=== PATIENT | female | born 1950 | race Caucasian/White ===

== ENCOUNTER 2017-09-07 12:29 | Emergency (ER) | payer OTHER ==
[2017-09-07 13:15] LABS: #Eosinphils 0.3 thou/uL (0.0-0.7); #Lymphocytes 1.9 thou/uL (1.20-3.40); #Monocytes 1.1 thou/uL (0.11-0.59); #Neutrophils 5.3 thou/uL (1.40-6.50); %Basophils 0.4 % (0.0-1.0); %Eosinophils 3.3 % (0.0-10.0); %Lymphocytes 21.7 % (21.0-51.0); %Monocytes 12.5 % (0.0-10.0); %Neutrophils 62.1 % (42.0-75.0); Hemoglobin 12.3 g/dL (12.0-16.0); Mean Corpuscular HGB CONC 33.2 g/dL (32.0-36.0); Mean Corpuscular Hemoglobin 30.3 pg (27.0-31.0); Mean Corpuscular Volume 91.2 fl (81.0-99.0); Mean Platelet Volume 7.8 fL (7.4-10.4); Platelet Count 337 thou/uL (130-400); RBC Distribution Width 11.9 % (11.5-14.5); Red Blood Cell (RBC) Count 4.06 mill/uL (4.20-5.40); White Blood Cell (WBC) Count 8.6 thou/uL (4.8-10.8)
--- NOTE | 2017-09-07 13:39 | RAD ---
FRONTAL VIEW CHEST: INDICATIONS: Emergency exam. History of fever. Weakness. Dizziness. Unsteady gait. COMPARISON: 07/13/2016 FINDINGS: There is added density at the right lower lung zone. This is new from the prior exam. There is no e vidence of consolidation of the left lung. The cardiomediastinal silhouette is stable. IMPRESSION: Newly developed patchy density of the inferior right chest. This indicates pneumonia. Recommend foll owup to confirm resolution. CODE T POS: [facility]
[2017-09-07 13:41] LABS: ALT (SGPT) 67 U/L (8-55); AST (SGOT) 54 U/L (5-34); Albumin 3.8 g/dL (3.4-4.8); Alkaline Phosphatase 201 U/L (40-150); Anion Gap 11 mmol/L (10-20); BUN (Urea Nitrogen) 15 mg/dL (9.8-20.1); Bilirubin, Total 0.3 mg/dL (0.2-1.2); Calc. Creatinine Clearance 0 mL/min (70-130); Calcium 9.3 mg/dL (7.8-10.44); Carbon Dioxide 27 mmol/L (23-31); Chloride 104 mmol/L (98-107); Estimated GFR-MDRD 64; Globulin 3.7 g/dL (2.4-3.5); Glucose 96 mg/dL (80-115); Potassium 3.5 mmol/L (3.5-5.1); Protein, Total 7.5 g/dL (6.0-8.3); Sodium 138 mmol/L (136-145)
[2017-09-07 13:44] LABS: Troponin I Less than 0.010 ng/mL (< 0.028)
[2017-09-07 14:02] LABS: Bilirubin Negative (Negative); Blood, Urine Negative (Negative); Clarity CLEAR (Clear); Glucose, Urine (Dipstick) Negative (Negative); Leukocyte Negative (Negative); Nitrite Negative (Negative); Protein, Urine (Dipstick) Negative (Neg-Trace); Specific Gravity, Urine 1.015 (1.002-1.036); Urobilinogen 0.2 mg/dL (0.2-1.0); pH, Urine 5.5 (5.0-9.0)
--- NOTE | 2017-09-07 14:57 | CT ---
CT BRAIN: Date: 09/07/17 HISTORY: Intermittent alteration, fever. TECHNIQUE: Noncontrast enhanced CT images of brain obtained. COMPARISON: Previous exam from 12/05/13 and 08/17/13. FINDINGS: CT images of the brain demonstrate continued presence of areas of hyperdensity in the medial aspect o f the right parietal lobe. These areas of hyperdensity are stable over three CT scans. As they have n ot changed, I suspect that they may represent more chronic calcifications from a vascular malformatio n. No significant interval change is seen to suggest that this is hemorrhage, although it is theoreti frank possible that tiny areas of subarachnoid hemorrhage are present in the identical location and t he identical amount over three CTs over a four year period. I suspect that this is, however, very unl ikely. No other intracranial abnormality seen. No evidence of acute strokes seen. IMPRESSION: Likely area of calcification in the right parietal subarachnoid space. This may be due to vascular ma lformation, including possible Sturge-Tamez type vascular pathology. POS: [facility]
== END 2017-09-07 15:35 | disposition home or self-care (01) ==
LOC: ERS 12:29
DX: J18.9 Pneumonia, unspecified organism (principal); I48.91 Unspecified atrial fibrillation; I50.9 Heart failure, unspecified; G43.909 Migraine, unspecified, not intractable, without status migrainosus; F41.9 Anxiety disorder, unspecified; F43.10 Post-traumatic stress disorder, unspecified; Z87.891 Personal history of nicotine dependence; Z79.899 Other long term (current) drug therapy; Z85.850 Personal history of malignant neoplasm of thyroid; Z85.43 Personal history of malignant neoplasm of ovary
CPT/HCPCS: 70450; 71045; 80053; 81003; 82553; 84484; 85025; 93005

== ENCOUNTER 2018-03-07 15:24 | Emergency (ER) | payer OTHER ==
--- NOTE | 2018-03-07 16:00 | RAD ---
RADIOGRAPH CHEST 2 VIEWS: HISTORY: 67-year-old female with cough and wheezing. FINDINGS: There is no air space density, pulmonary edema, pleural effusion, pneumothorax, or cardiomegaly. Ther e is a dual lead left subclavian pacemaker. IMPRESSION: 1. No acute cardiopulmonary findings. 2. Pacemaker. jn [] POS: C
[2018-03-07] MEDS ORDERED: Levalbuterol HCl 1.25 MG/0.5 ML NEB NEB SCH ×2 (16:30→17:30)
[2018-03-07 16:42] LABS: #Basophils 0.1 thou/uL (0.0-0.2); #Eosinphils 0.2 thou/uL (0.0-0.7); #Lymphocytes 2.8 thou/uL (1.20-3.40); #Monocytes 0.9 thou/uL (0.11-0.59); #Neutrophils 5.2 thou/uL (1.40-6.50); %Basophils 0.8 % (0.0-1.0); %Eosinophils 2.1 % (0.0-10.0); %Lymphocytes 30.6 % (21.0-51.0); %Monocytes 9.3 % (0.0-10.0); %Neutrophils 57.2 % (42.0-75.0); Hemoglobin 11.6 g/dL (12.0-16.0); Mean Corpuscular HGB CONC 31.7 g/dL (32.0-36.0); Mean Corpuscular Hemoglobin 26.7 pg (27.0-31.0); Mean Corpuscular Volume 84.2 fL (78.0-98.0); Mean Platelet Volume 7.8 fL (7.4-10.4); Platelet Count 453 thou/uL (130-400); RBC Distribution Width 16.2 % (11.5-14.5); Red Blood Cell (RBC) Count 4.33 mill/uL (4.20-5.40); White Blood Cell (WBC) Count 9.1 thou/uL (4.8-10.8)
[2018-03-07] MEDS ORDERED: predniSONE 20 MG TAB ONE (16:50)
[2018-03-07 17:08] LABS: ALT (SGPT) 25 U/L (8-55); AST (SGOT) 25 U/L (5-34); Alkaline Phosphatase 191 U/L (40-150); Anion Gap 11 mmol/L (10-20); BUN (Urea Nitrogen) 14 mg/dL (9.8-20.1); Bilirubin, Total 0.3 mg/dL (0.2-1.2); CK (CPK) 80 U/L (29-168); Calc. Creatinine Clearance 0 mL/min (70-130); Calcium 9.4 mg/dL (7.8-10.44); Carbon Dioxide 27 mmol/L (23-31); Chloride 105 mmol/L (98-107); Estimated GFR-MDRD 68; Globulin 3.4 g/dL (2.4-3.5); Glucose 103 mg/dL (80-115); Potassium 3.9 mmol/L (3.5-5.1); Protein, Total 7.4 g/dL (6.0-8.3); Sodium 139 mmol/L (136-145)
== END 2018-03-07 18:08 | disposition home or self-care (01) ==
LOC: ERS 15:24
DX: J40 Bronchitis, not specified as acute or chronic (principal); I48.91 Unspecified atrial fibrillation; D50.9 Iron deficiency anemia, unspecified; G43.909 Migraine, unspecified, not intractable, without status migrainosus; F41.9 Anxiety disorder, unspecified; F43.10 Post-traumatic stress disorder, unspecified; Z87.891 Personal history of nicotine dependence; Z79.899 Other long term (current) drug therapy; Z79.82 Long term (current) use of aspirin; Z79.01 Long term (current) use of anticoagulants
CPT/HCPCS: 36415; 71046; 80053; 82550; 85025; 94640; J7506; J7612

== ENCOUNTER 2018-08-04 08:29 | Outpatient (CLI) | payer OTHER ==
--- NOTE | 2018-08-04 09:10 | CT ---
CT HEAD WITHOUT IV CONTRAST COMPARISON: 09/07/2017 and 12/05/2013. HISTORY: Follow-up traumatic subdural hematoma. Patient reportedly had hemorrhage at outside institution appr oximately 5 weeks ago. Follow-up exam was requested. TECHNIQUE: Axial CT imaging at 5 mm intervals from vertex through skull base without contrast FINDINGS: Prior studies obtained from [facility] are not available for comparison. There is an area of increased density seen in the medial right parietal sulcus with a linear area of much greater increased density which has a serpiginous appearance. This is unchanged from those prior exams and may be sequela of prior treated vascular malformation. There are no findings to sugge st an intraparenchymal or extra-axial hemorrhage on this exam. Low density area seen within the right anterolateral frontal subcortical white matter is again seen a nd unchanged and may be related to remote white matter infarction or other prior insult. There is no evidence of an acute cortical infarction, mass effect, or midline shift. CT of the head is overall stable when compared to the prior studies. IMPRESSION: 1. No acute intracranial abnormality demonstrated. 2. Stable area of increased density in addition to a serpiginous area of greater density in a parafal cine location in the right parietal lobe. Findings again may be related to sequela of prior treated vascular malformation. There are no findings to suggest an intraparenchymal or extra-axial hemorrhage on this study.
== END 2018-08-04 08:30 | disposition home or self-care (01) ==
LOC: TBSIIMAG 08:29
PROVIDERS: ATTEND Neurological Surgery
DX: S06.6X9D Traumatic subarachnoid hemorrhage with loss of consciousness of unspecified duration, subsequent encounter (principal); G93.89 Other specified disorders of brain
CPT/HCPCS: 70450

== ENCOUNTER 2019-10-12 02:42 | Inpatient (IN) | payer OTHER ==
[2019-10-12] MEDS ORDERED: Acetaminophen 325 MG TAB PO PRN (03:21)
[2019-10-12] MEDS ORDERED: hydrALAZINE 20 MG/ML VIAL SLOW IVP PRN (03:21)
[2019-10-12] MEDS ORDERED: Ondansetron PF 4 MG/2 ML Vial IVP PRN (03:21)
[2019-10-12] MEDS ORDERED: HYDROcodone/Acetaminophen 7.5/325 mg Tablet PO PRN (03:21)
[2019-10-12] MEDS ORDERED: Acetaminophen/Codeine 30-300mg Tablet PO PRN (03:25)
[2019-10-12 04:57] VITALS: BMI 30.4
[2019-10-12] MEDS: Sodium Chloride 0.9% 1,000 ML IV SCH ×2 (05:15→20:02)
--- NOTE | 2019-10-12 07:09 | CT ---
CT OF THE BRAIN WITHOUT CONTRAST: Date: 10/12/2019 INDICATION: History of subarachnoid hemorrhage. COMPARISON: Prior CT of the brain dated 08/04/2018, CTA head with and without contrast dated 11/17/2018, and a no ncontrast CT of the brain dated 10/11/2018. FINDINGS: On the most recent overnight evaluation, performed earlier this morning at 0100 hours, there was repo rt of an acute subarachnoid hemorrhage within the paramedian right parietal lobe. This is correspondi ng to a region of increased density filling a sulcus of the paramidline posterior right parietal anika on that has been documented on prior examinations and is related to an arteriovenous malformation. Wh en comparing the density filling the sulcus on comparison examinations, this appears stable to the pr ior examination dating back to 08/17/2013. No hydrocephalus is evident. No midline shift is noted. No acute infarct is present. The skull appears intact. There is a focal contusion of the left frontal s calp. Paranasal sinuses are clear. Mastoid air cells are clear. IMPRESSION: 1. Stable density filling a sulcus of the posterior paramedial right parietal lobe likely reflecting patient's known arteriovenous malformation. No definite acute intracranial hemorrhage is evident. 2. Left frontal scalp contusion. POS: [facility]
[2019-10-12] MEDS ORDERED: tiZANidine HCl 4 MG TAB PO PRN (07:38)
[2019-10-12] MEDS ORDERED: Dicyclomine 20 MG TAB PO PRN (07:38)
[2019-10-12] MEDS ORDERED: diphenhydrAMINE 25 MG CAP PO PRN (07:38)
[2019-10-12] MEDS ORDERED: Loperamide HCl 2 MG CAP PO PRN (07:38)
[2019-10-12] MEDS ORDERED: Estrogens, Conjugated 30 GM TUBE VAG SCH (07:45)
[2019-10-12] MEDS ORDERED: Cyanocobalamin 1000 MCG/ML VIAL IM SCH (07:45)
[2019-10-12] MEDS ORDERED: ETHACRYNIC ACID PO SCH (09:00)
--- NOTE | 2019-10-12 14:45 | CON ---
DATE OF CONSULTATION: PRIMARY CARE PHYSICIAN: Dr. Rosenthal at [facility]. PRIMARY TEAM: Neurosurgery, Dr. Qureshi. REASON FOR CONSULTATION: Medical management. 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 The patient is being worked up right now for sleep apnea and has a lot of daytime sleepiness. She was sitting on the toilet and fell asleep, which has happened to her before. She fell and hit her head on the left side, and when she woke up, she had a headache. The patient went to the emergency room. She had a CT scan done in [place] that showed concern for a small subarachnoid hemorrhage, so she was transferred here for Neurosurgery to admit. She had a repeat CT scan this morning, which compared to the one yesterday showed no change, and when comparison to previous scans, showed a stable density, filling the sulcus of the posterior and paramedial right parietal lobe, likely the patient's known arteriovenous malformation without any definitive acute intracranial hemorrhage so likely home tomorrow. REVIEW OF SYSTEMS: CONSTITUTIONAL: No fevers. No chills. EYES: She has chronic double vision from her myasthenia gravis, no changes. No new vision problems. ENT: No significant congestion, drainage, or sore throat. She does get some mild nasal stuffiness on and off from her allergies that is at baseline. CARDIOVASCULAR: No chest pain. No palpitations or racing heart. PULMONARY: The patient has intermittent cough from her allergies. This is at baseline as well. No recent worsening. Nonproductive. No wheezing. No shortness of breath or chest tightness. GASTROINTESTINAL: No abdominal pain. No nausea or vomiting. No diarrhea or constipation. GENITOURINARY: No dysuria or hematuria. MUSCULOSKELETAL: The patient has a little bit of neck stiffness since the fall , but no pain. No other musculoskeletal complaints. SKIN: No rashes or other lesions she has noted. NEUROLOGIC: No numbness, tingling, or focal weakness. PAST MEDICAL HISTORY: 1. Atrial fibrillation with previous sick sinus syndrome. 2. Pernicious anemia. 3. Migraine headaches. 4. Previous vertigo. 5. Papillary cancer of the thyroid, status post radioactive iodine. 6. Malignant melanoma, resected. 7. Basal-cell carcinoma resected. 8. Ovarian cancer, status post resection of uterus and ovaries. 9. Myasthenia gravis. 10. Spinal stenosis. 11. Irritable bowel syndrome. PAST SURGICAL HISTORY: 1. Pacemaker placement. 2. Cholecystectomy. 3. Radioablation of the thyroid. 4. Complete thyroidectomy. 5. Ablation of atrial fibrillation. 6. Gastric band surgery. 7. Hysterectomy with bilateral oophorectomies. 8. Breast reduction. 9. Appendectomy. PAST PSYCHIATRIC HISTORY: 1. Anxiety. 2. PTSD. SOCIAL HISTORY: The patient smokes 7 cigarettes per day. No alcohol or illicit drug use. She lives at home. She is a full code. Should she be incapacitated , her son would be her medical decision maker, his name is Zelalem Pinon. FAMILY HISTORY: Positive for melanoma, hypertension, diabetes, and coronary artery disease. ALLERGIES: 1. NEOSPORIN. 2. KEFLEX. 3. EGGS. 4. FUROSEMIDE. 5. IBUPROFEN. 6. INFLUENZA VACCINE. 7. LATEX. 8. LEVAQUIN. 9. PENICILLIN. 10. SULFA. 11. TRAMADOL. 12. ADHESIVES. CURRENT MEDICATIONS: 1. Aspirin 325 mg daily. 2. Multivitamin daily. 3. Xarelto 20 mg daily. 4. Buspirone 10 mg twice a day. 5. Calcium carbonate 500 mg daily. 6. Cetirizine 20 mg daily. 7. Vitamin B12 intramuscular every 3 weeks. 8. Dicyclomine 20 mg as needed. 9. Benadryl as needed. 10. Premarin cream 1 g vaginally twice a week. 11. mg twice a day. 12. Prozac 60 mg daily. 13. Gabapentin 600 mg 4 times a day. 14. Hydroxyzine 25 mg 4 times a day. 15. Levothyroxine 200 mcg daily. 16. Loperamide 2 mg as needed. 17. Meclizine 25 mg 3 times a day. 18. Potassium chloride 10 mEq daily. 19. Simvastatin 20 mg at night. 20. Tizanidine 2 mg as needed. 21. Topiramate 100 mg in the morning and 200 mg at night. 22. Venlafaxine 75 mg daily. PHYSICAL EXAMINATION: VITAL SIGNS: Blood pressure 116/67, pulse 64, respirations 13, O2 saturation 100% on room air, and temperature 97.8. GENERAL: This is a well-developed, well-nourished white female, in no apparent distress. HEENT: Head; the patient has a 2-cm contusion over the left ear without laceration. Eyes; pupils equal, round, and reactive to light. Oropharynx clear without lesions, erythema, or exudate. NECK: Supple. No lymphadenopathy. No tenderness to palpation. No thyroid nodules or enlargement. No JVD. HEART: Regular rate and rhythm. No murmurs, rubs, or gallops. LUNGS: Clear to auscultation bilaterally. No wheezes, crackles, or rhonchi. ABDOMEN: Soft. Nontender to palpation. Normoactive bowel sounds. No hepatosplenomegaly or other masses. EXTREMITIES: No clubbing, cyanosis, or edema. SKIN: No rashes or other lesions noted. NEUROLOGIC: The patient has intact strength and sensation in all extremities. Deep tendon reflexes are 2+ in all extremities. Her cranial nerves are intact and equal bilaterally. No facial droop. LABORATORY DATA: CBC with a hemoglobin of 11.9 with a normal MCV. The rest of her CBC is normal. Coagulation profile with PT of 19, INR of 1.6, and PTT of 37. Complete metabolic panel is notable for AST of 37, the rest was normal. CT of the brain as per HPI. ASSESSMENT: 1. Closed head injury on Xarelto. The patient, on reviewing the second CT, does not appear to have an active intracranial hemorrhage. She is being transferred out of the ICU with likely plan to discharge home tomorrow. Holding aspirin and Xarelto for now. I will resume when okay with Neurosurgery. 2. Atrial fibrillation and sick sinus syndrome with pacemaker. We will resume Xarelto when okay with Neurosurgery. 3. Hypothyroidism. We will resume the patient's levothyroxine. 4. Hyperlipidemia. We will resume the patient's simvastatin. 5. Anxiety and post-traumatic stress disorder. We will resume the patient's psychiatric medications. 6. Deep venous thrombosis prophylaxis, SCDs, apply to bilateral lower extremities while on bed and encourage ambulation with assistance. 7. Code status. The patient is a full code. Should she be incapacitated, her son would be her medical decision maker, his name is Zelalem Baileyyonatanaramis. Job ID: [id number] [facility] HOSPITALAlfredo
[2019-10-12] MEDS: busPIRone HCl 5 MG TAB PO SCH ×2 (19:59→21:07)
[2019-10-12] MEDS: Gabapentin 300 MG CAP PO SCH ×2 (20:00→21:07)
[2019-10-12] MEDS: Calcium Carbonate 500 MG TAB PO SCH (20:00)
[2019-10-12] MEDS: FLUoxetine HCl 20 MG CAP PO SCH (20:00)
[2019-10-12] MEDS: hydrOXYzine Pamoate 25 mg Capsule PO SCH ×3 (20:00→21:07)
[2019-10-12] MEDS: Potassium Chloride 10 MEQ TAB PO SCH (20:01)
[2019-10-12] MEDS: Topiramate 100 MG TAB PO SCH (20:01)
[2019-10-12] MEDS: Meclizine HCl 25 MG TAB PO SCH ×2 (20:01→21:08)
[2019-10-12] MEDS: Loratadine 10 MG TAB PO SCH (20:01)
[2019-10-12] MEDS: Venlafaxine HCl 37.5 MG TAB PO SCH (20:01)
[2019-10-12] MEDS ORDERED: Topiramate 100 MG TAB PO SCH (21:00)
[2019-10-12] MEDS ORDERED: Atorvastatin Calcium 10 MG TAB PO SCH (21:00)
[2019-10-13] MEDS: Sodium Chloride 0.9% 1,000 ML IV SCH ×2 (05:43→07:01)
[2019-10-13] MEDS ORDERED: Levothyroxine Sodium 100 MCG TAB PO SCH (06:00)
[2019-10-13 07:04] VITALS: TEMP 98.6
[2019-10-13] MEDS: Calcium Carbonate 500 MG TAB PO SCH (08:30)
[2019-10-13] MEDS: Topiramate 100 MG TAB PO SCH (08:30)
[2019-10-13] MEDS: Potassium Chloride 10 MEQ TAB PO SCH (08:30)
[2019-10-13] MEDS: Gabapentin 300 MG CAP PO SCH (08:30)
[2019-10-13] MEDS: FLUoxetine HCl 20 MG CAP PO SCH (08:30)
[2019-10-13] MEDS: Loratadine 10 MG TAB PO SCH (08:30)
[2019-10-13] MEDS: Meclizine HCl 25 MG TAB PO SCH (08:31)
[2019-10-13] MEDS: busPIRone HCl 5 MG TAB PO SCH (08:31)
[2019-10-13] MEDS: Venlafaxine HCl 37.5 MG TAB PO SCH (08:31)
[2019-10-13] MEDS: hydrOXYzine Pamoate 25 mg Capsule PO SCH (08:31)
--- NOTE | 2019-10-13 11:26 | PRG ---
DATE OF SERVICE: 10/13/2019 30-minute initial visit note, in which 30 minutes were spent reviewing the imaging record, evaluation, examination of patient, and formulation of plan. Greater than 50% time was spent in counseling on Shanice Pinon. I reviewed the notes of my colleague, Rosanna Elaine PA-C, and agree with its content. SUBJECTIVE: Ms. Pinon is a very pleasant 69-year-old woman, admitted after falling asleep on the commode and hitting her head. She has had a small traumatic subarachnoid hemorrhage with some acute subdural hematoma along the falx. She is on Xarelto and full-strength aspirin. Head CT has been stable. She is doing fine this morning, neurologically intact. She will be discharged. I let her know I do not want her on any blood thinners for the next 2 weeks. We will do a head CT and arrange for that imaging study. Once it is reviewed by our team, we will let her know that whether or not she can initiate a blood thinner and she will start with aspirin. Two weeks after initiation of aspirin, if she is doing well clinically, she can add Xarelto, and followup from then will be as needed. DIAGNOSIS: Intracranial bleed, status post fall . Job ID: [id number]
--- NOTE | 2019-10-16 08:08 | PQF ---
JEAN CLAUDE ANDERSEN JASON MD [id number] CLINICAL DOCUMENTATION CLARIFICATION FORM: POST DISCHARGE Addendum to original discharge summary date: ____ Late entry note date: __ DATE: 10/16/2019 ATTN:Mario Qureshi Please exercise your independent, professional judgment in responding to the clarification form. Clinical indicators are provided on the bottom of this form for your review Please check appropriate box(s): [ ] Paroxysmal Atrial Fibrillation [ ] Persistent Atrial Fibrillation [ ] Chronic Atrial Fibrillation (includes permanent Atrial Fibrillation) [ ] Other diagnosis [ ] Unable to determine For continuity of documentation, please document condition throughout progress notes and discharge summary. Thank You. CLINICAL INDICATORS - SIGNS / SYMPTOMS / LABS ED Notes 10/11 "has a history of afib" Consult 10/11 "Cardiology: no chest pain. No palpitation or racing heart" Consult 10/11 "regular rate anr rhythm" Vital Signs Pulse: 10/11=67 10/12=66 RISKS FACTORS 69 years old female-ED Notes 10/11 s/p fall-ED Notes 10/11 Former smoker-ED Notes 10/11 SSS-Consult 10/11 Traumatic SAH-PN 10/12 TREATMENTS: ECG-Collected 10/12 Aspirin 81mg Oral-MAR 10/12 Xarelto 20mg oral-JUN 16 (This form is maintained as a part of the permanent medical record) 2014 [employer]. All Rights Reserved [email or web address] [phone] [email or web address]
--- NOTE | 2019-10-17 | PQF ---
JEAN CLAUDE ANDERSEN JASON MD [id number] CLINICAL DOCUMENTATION CLARIFICATION FORM: POST DISCHARGE Addendum to original discharge summary date: ____ Late entry note date: __ DATE: 10/17/2019 ATTN:Mario Qureshi Please exercise your independent, professional judgment in responding to the clarification form. Clinical indicators are provided on the bottom of this form for your review Please check appropriate box(s): Conflicting documentation was noted in the Medical Record, please clarify if patient is being treated/monitored for: [ ] AVM with Traumatic subarachnoid/Subdural hemorrhage [ ] AVM with scalp hematoma without intracranial hemorrhage [ ] Other diagnosis [ ] Unable to determine For continuity of documentation, please document condition throughout progress notes and discharge summary. Thank You. CLINICAL INDICATORS - SIGNS / SYMPTOMS/ LABS ED Notes 10/11 "she fell while sitting on the toilet" ED Notes 10/11 "GCS:15" CT Brain 10/11 "no definite acute intracranial hemorrhage" CT Brain 10/11 "Left frontal scalp contusion" Consult 10/12 "showed concern for a small subarachnoid hemorrahage" Consult 10/12 "Closed head injury" Consult 10/12 "does not appear to have an active intracranial hemorrhage" PN 10/12 "she has has a small traumatic subarachnoid hemorrhage and some acute subdural hematoma" RISK FACTORS 69 years old female-ED Notes 10/11 Afib-ED Notes 10/11 On longterm anticoagulant-ED Notes 10/11 s/p fall-ED Notes 10/11 Former Smoker-ED Notes 10/11 AVM-Consult 10/[address] Brain-Collected 10/11 Neurosurgery consult-Consult 10/12 Hold aspirin and xarelto-Consult 10/12 (This form is maintained as a part of the permanent medical record) 2014 [employer]. All Rights Reserved [email or web address]
== END 2019-10-13 14:00 | disposition home or self-care (01) | DRG 87 ==
LOC: ERS 02:42 → CCU 03:35
PROVIDERS: ADMIT Surgery; ATTEND Surgery
DX: S06.6X0A Traumatic subarachnoid hemorrhage without loss of consciousness, initial encounter (principal); F17.210 Nicotine dependence, cigarettes, uncomplicated; W18.12XA Fall from or off toilet with subsequent striking against object, initial encounter; S06.5X0A Traumatic subdural hemorrhage without loss of consciousness, initial encounter; G70.00 Myasthenia gravis without (acute) exacerbation; Z95.0 Presence of cardiac pacemaker; F43.10 Post-traumatic stress disorder, unspecified; I49.5 Sick sinus syndrome; R40.2362 Coma scale, best motor response, obeys commands, at arrival to emergency department; R40.2142 Coma scale, eyes open, spontaneous, at arrival to emergency department; R40.2252 Coma scale, best verbal response, oriented, at arrival to emergency department; I48.91 Unspecified atrial fibrillation; D51.0 Vitamin B12 deficiency anemia due to intrinsic factor deficiency; Z87.01 Personal history of pneumonia (recurrent); Z88.5 Allergy status to narcotic agent; Z88.0 Allergy status to penicillin; Z88.2 Allergy status to sulfonamides; Z88.8 Allergy status to other drugs, medicaments and biological substances; Z88.1 Allergy status to other antibiotic agents; Z91.012 Allergy to eggs; Z79.01 Long term (current) use of anticoagulants; Z79.82 Long term (current) use of aspirin; Z79.899 Other long term (current) drug therapy; Z85.850 Personal history of malignant neoplasm of thyroid; Z85.43 Personal history of malignant neoplasm of ovary; Z90.49 Acquired absence of other specified parts of digestive tract; Z90.710 Acquired absence of both cervix and uterus
CPT/HCPCS: 70450; 99285; Q0177

== ENCOUNTER 2019-12-19 08:30 | Outpatient (CLI) | payer OTHER ==
--- NOTE | 2019-12-19 10:22 | MRI ---
MR CERVICAL SPINE WITHOUT CONTRAST INDICATION: 69-year-old female with history of bilateral hand numbness and arm Weakness; history of [employer] pacemaker. Ramos, the [employer] rep, Dr. Hurt and Dr. Ferro reviewed th e case. TECHNIQUE: Multiplanar multisequence MR images were obtained of the cervical spine without contrast. COMPARISON: None FINDINGS: Posterior fossa: Within normal limits. Bone marrow signal intensity: Normal Spinal alignment: Normal. Craniocervical junction: Normal appearing. Prevertebral and perivertebral soft tissues: Visualized soft tissues appear within normal limits. Vertebral levels: C2-C3: No appreciable central canal or neuroforaminal narrowing. C3-4: Mild facet joint degenerative change but no appreciable central canal or neural foraminal narro wing. C4-5: There is a broad-based bulge causing mild central canal narrowing mild ventral effacement of t he spinal cord. There is mild facet joint degenerative change. There is [id number] right neural foraminal narrowing. C5-C6: There is a broad-based disc bulge inducing mild to moderate central canal narrowing mild ventr al effacement of the spinal cord. There is severe right and mild left neural foraminal narrowing. C6-C7:, There is a broad-based disc bulge inducing mild to moderate central canal narrowing mild vent ral effacement of the spinal cord. There is severe right and mild left neural foraminal narrowing. C7-T1: No appreciable central canal or neuroforaminal narrowing. IMPRESSION: Moderate cervical spondylosis with central canal narrowing seen at C4-5 through C6-7 causing mild adal tral effacement of the spinal cord without cord signal abnormality. There is [id number] right neural foraminal narrowing at C4-5, severe right neural foraminal narrowing at C5-6 and C6-7.
--- NOTE | 2019-12-19 10:36 | MRI ---
MR the lumbar spine without contrast INDICATION: Bilateral leg numbness and weakness with history of multiple falls COMPARISON: CT the abdomen and pelvis dated August 24, 2014 TECHNIQUE: Multiplanar multisequence MR images were obtained of lumbar spine without IV contrast. The examination was cleared for MR evaluation by Dr. Hurt and Dr. Ferro. Ramos, the [employer] rep, also reviewed the patient's chest radiograph. FINDINGS: There is partial lumbarization of S1. There are small riblets at L1. Bone marrow: Bone marrow signal intensity appears within normal limits. Distal spinal cord and conus: Normal. The conus seen to terminate at L2. Visualized retroperitoneum and paraspinal soft tissues: There is a T2 hyperintense cystic type abnorm alities seen along the superior pole of the left kidney measuring 2.1 cm which was not definitely seen on the prior CT the abdomen and pelvis. This may be associated with the superior pole left kidne y, medial spleen or pancreatic tail. Vertebral levels: S1-S2: No appreciable central canal or neural foraminal narrowing is demonstrated. L5-S1: There is a broad-based disc osteophyte complex with facet hypertrophy inducing moderate right lateral recess narrowing with potential for impingement of the traversing right S1 nerve root. There is mild left lateral recess narrowing due to the facet hypertrophy and broad-based disc osteoph yte complex. The loss of disc space height in addition to the facet hypertrophy and disc osteophyte complex produces moderate left and moderate to severe right neural foraminal narrowing.. L4-5: There is grade 1 anterolisthesis of L4 and L5. There is a broad-based pseudobulge. There is mil d central canal narrowing. There is loss of disc space height. Constellation of findings induces mild bilateral neural foraminal narrowing, right greater than left. L3-4: No appreciable central canal or neuroforaminal narrowing. L2-3: No appreciable central canal or neuroforaminal narrowing. L1-L2: No appreciable central canal or neuroforaminal narrowing. T12-L1: No appreciable central canal or neuroforaminal narrowing. IMPRESSION: 1. Transitional lumbosacral vertebra. 2. Moderate right and mild left lateral recess narrowing at L5-S1 due to a disc osteophyte complex an d prominent facet hypertrophy. There is moderate to severe right and moderate left neural foraminal narrowing at L5-S1 3. Grade 1 anterolisthesis of L4 and L5 with mild central canal narrowing and mild bilateral neural f oraminal narrowing, right greater than left. 4. New cystic abnormality is seen just superior to the left kidney is incompletely characterized. Rec ommend a follow-up CT of the abdomen with and without contrast to further characterize this lesion. This may have be associated with the superior pole of the left kidney, pancreatic tail or medial sple en.
--- NOTE | 2019-12-19 10:44 | RAD ---
RADIOGRAPH CHEST 2 VIEWS: MRI CLEARANCE DATE: 12/19/2019 HISTORY: 69-year-old female with traditional CEID, for MRI clearance. FINDINGS: There is no air space density, pulmonary edema, pleural effusion, pneumothorax, or cardiomegaly. There is a transvenous permanent pacemaker with left-sided generator, and lead tips overlying the exp ected locations of the right atrial appendage and right ventricle. There is no evidence of disconnect ion of the leads from the generator, and there is no lead fracture. Incidentally, there is an old fra cture deformity involving the posterolateral aspect of the right eighth rib. There is a cluster of cabrales rgical clips in the left upper quadrant of the abdomen. IMPRESSION: 1. No acute cardiopulmonary findings. 2. Permanent transvenous pacemaker. 3. The patient is cleared for MRI, to be continually supervised by the river rat/cardiolog ist Dr. Hurt. melody [] POS: [facility]
== END 2019-12-19 08:31 | disposition home or self-care (01) ==
LOC: MRI 08:30 → EDSTATUS 09:00
PROVIDERS: ATTEND Neurological Surgery
DX: G95.9 Disease of spinal cord, unspecified (principal); M54.16 Radiculopathy, lumbar region; M43.16 Spondylolisthesis, lumbar region; M47.812 Spondylosis without myelopathy or radiculopathy, cervical region; M48.061 Spinal stenosis, lumbar region without neurogenic claudication; M48.07 Spinal stenosis, lumbosacral region; M48.02 Spinal stenosis, cervical region; N28.1 Cyst of kidney, acquired; Z95.0 Presence of cardiac pacemaker; R93.7 Abnormal findings on diagnostic imaging of other parts of musculoskeletal system; M25.78 Osteophyte, vertebrae
CPT/HCPCS: 71046; 72141; 72148

== ENCOUNTER 2020-10-04 08:55 | Outpatient (CLI) | payer MEDICARE, OTHER | END 2020-10-04 08:56 | disposition home or self-care (01) | LOC: NM 08:55 | PROVIDERS: ATTEND Psychiatry & Neurology Neurology | DX: R26.89 Other abnormalities of gait and mobility (principal); R25.1 Tremor, unspecified | CPT/HCPCS: 78803; A9584 ==

== ENCOUNTER 2021-03-01 15:22 | Inpatient (IN) | payer MEDICARE, OTHER ==
[2021-03-01 17:30] VITALS: BMI 27.2
[2021-03-01 17:51] VITALS: BP 97/62
[2021-03-01] MEDS ORDERED: Metoprolol Tartrate 5 MG/5 ML VIAL IVP SCH (18:34)
[2021-03-01] MEDS ORDERED: Metoprolol Tartrate 25 MG TAB PO SCH (18:45)
[2021-03-01] MEDS ORDERED: Acetaminophen 325 MG TAB PO PRN ×2 (18:46→22:40)
[2021-03-01 19:43] LABS: Troponin I Less than 0.010 ng/mL (< 0.028)
[2021-03-01] MEDS ORDERED: Topiramate 100 MG TAB PO SCH ×2 (21:00→23:00)
[2021-03-01] MEDS ORDERED: Diltiazem 125 MG in Sodium Chloride 0.9% 100 ML IVPB SCH (22:45)
[2021-03-01] MEDS ORDERED: Aspirin 325 MG TAB PO PRN (22:52)
[2021-03-01 22:54] LABS: Troponin I 0.015 ng/mL (< 0.028)
[2021-03-02 04:21] LABS: #Basophils 0.1 thou/uL (0.0-0.2); #Eosinphils 0.4 thou/uL (0.0-0.7); #Lymphocytes 4.4 thou/uL (1.20-3.40); #Monocytes 0.9 thou/uL (0.11-0.59); #Neutrophils 5.4 thou/uL (1.40-6.50); %Basophils 0.5 % (0.0-1.0); %Eosinophils 3.5 % (0.0-10.0); %Lymphocytes 39.8 % (21.0-51.0); %Monocytes 7.8 % (0.0-10.0); %Neutrophils 48.4 % (42.0-75.0); Hemoglobin 13.9 g/dL (12.0-16.0); Mean Corpuscular HGB CONC 31.5 g/dL (32.0-36.0); Mean Corpuscular Hemoglobin 31.3 pg (27.0-31.0); Mean Corpuscular Volume 99.5 fL (78.0-98.0); Mean Platelet Volume 7.9 fL (7.4-10.4); Platelet Count 359 thou/uL (130-400); RBC Distribution Width 12.6 % (11.5-14.5); Red Blood Cell (RBC) Count 4.45 mill/uL (4.20-5.40)
[2021-03-02 04:43] LABS: Anion Gap 10 mmol/L (10-20); BUN (Urea Nitrogen) 18 mg/dL (9.8-20.1); Calc. Creatinine Clearance 78 mL/min (70-130); Calcium 9.1 mg/dL (7.8-10.44); Carbon Dioxide 28 mmol/L (23-31); Cardiac Risk 2.2 (Less than 4.5); Chloride 105 mmol/L (98-107); Cholesterol 217 mg/dl (< 200 Desired); Glucose 90 mg/dL (80-115); HDL Cholesterol 100 mg/dL (>60 Neg Risk); LDL Cholesterol, Calculated 88 mg/dL; Potassium 3.4 mmol/L (3.5-5.1); Sodium 140 mmol/L (136-145); Triglycerides 144 mg/dL (Less than 150)
[2021-03-02] MEDS: Topiramate 100 MG TAB PO SCH ×2 (10:07→20:45)
[2021-03-02] MEDS: Rivaroxaban 10 MG TAB PO SCH (10:07)
[2021-03-02] MEDS: Metoprolol Tartrate 25 MG TAB PO SCH ×2 (10:07→20:44)
[2021-03-02] MEDS ORDERED: Estrogens, Conjugated 30 GM TUBE VAG SCH (17:45)
[2021-03-02] MEDS: Meclizine HCl 25 MG TAB PO SCH (20:44)
[2021-03-02] MEDS: busPIRone HCl 5 MG TAB PO SCH (20:44)
[2021-03-02] MEDS: Gabapentin 300 MG CAP PO SCH (20:44)
[2021-03-02] MEDS: Atorvastatin Calcium 10 MG TAB PO SCH (20:44)
[2021-03-03] MEDS: Levothyroxine 175 MCG TAB PO SCH (05:28)
[2021-03-03 07:03] LABS: SARS-CoV-2 NAA Rapid Test Not Detected (NotDetected)
[2021-03-03] MEDS ORDERED: Amiodarone 150 MG in Dextrose 5% in Water 100 ML IVPB SCH (08:45)
[2021-03-03] MEDS: Metoprolol Tartrate 25 MG TAB PO SCH (08:55)
[2021-03-03] MEDS: Rivaroxaban 10 MG TAB PO SCH (08:55)
[2021-03-03] MEDS: Gabapentin 300 MG CAP PO SCH ×4 (08:56→20:02)
[2021-03-03] MEDS: Topiramate 100 MG TAB PO SCH ×2 (08:56→20:03)
[2021-03-03] MEDS: Meclizine HCl 25 MG TAB PO SCH ×4 (08:57→20:02)
[2021-03-03] MEDS: Calcium Carbonate 500 MG TAB PO SCH (08:57)
[2021-03-03] MEDS: Venlafaxine HCl XR 150 MG CAP PO SCH (08:57)
[2021-03-03] MEDS: busPIRone HCl 5 MG TAB PO SCH ×3 (08:58→20:03)
[2021-03-03] MEDS: Multivit, Therapeutic 1 TAB PO SCH (08:58)
[2021-03-03] MEDS: Loratadine 10 MG TAB PO SCH (08:58)
[2021-03-03] MEDS ORDERED: Venlafaxine HCl 37.5 MG TAB PO SCH (09:00)
[2021-03-03] MEDS ORDERED: PROPOFOL 200 MG/20 ML VIAL ONE (10:43)
[2021-03-03] MEDS ORDERED: PHENYLEPHRINE-NS 100 MCG/ML 10 ML SYRINGE ONE (10:43)
[2021-03-03] MEDS ORDERED: Lidocaine 1% PF 5 ML VIAL ONE (10:43)
[2021-03-03] MEDS: Amiodarone 450 MG in Dextrose 5% in Water 250 ML IVPB SCH ×2 (12:00→20:04)
[2021-03-03] MEDS: Atorvastatin Calcium 10 MG TAB PO SCH (20:03)
[2021-03-04] MEDS: Levothyroxine 175 MCG TAB PO SCH (05:54)
[2021-03-04] MEDS: Calcium Carbonate 500 MG TAB PO SCH (08:24)
[2021-03-04] MEDS: Venlafaxine HCl XR 150 MG CAP PO SCH (08:24)
[2021-03-04] MEDS: Loratadine 10 MG TAB PO SCH (08:24)
[2021-03-04] MEDS: Meclizine HCl 25 MG TAB PO SCH ×2 (08:24→13:18)
[2021-03-04] MEDS: Multivit, Therapeutic 1 TAB PO SCH (08:25)
[2021-03-04] MEDS: busPIRone HCl 5 MG TAB PO SCH (08:25)
[2021-03-04] MEDS: Rivaroxaban 10 MG TAB PO SCH (08:25)
[2021-03-04] MEDS: Topiramate 100 MG TAB PO SCH (08:25)
[2021-03-04] MEDS: Gabapentin 300 MG CAP PO SCH ×2 (08:25→13:18)
[2021-03-04 11:47] VITALS: TEMP 97.6
== END 2021-03-04 13:37 | disposition home or self-care (01) | DRG 310 ==
LOC: IMCU/EMU 17:09
PROVIDERS: ADMIT Internal Medicine; ATTEND Hospitalist
PROC: 5A2204Z Restoration of Cardiac Rhythm, Single (ICD-10-PCS; principal; 2021-03-03)
PROC: B24BZZ4 Ultrasonography of Heart with Aorta, Transesophageal (ICD-10-PCS; 2021-03-03)
DX: I48.3 Typical atrial flutter (principal); Z20.822 Contact with and (suspected) exposure to COVID-19; I47.1 Supraventricular tachycardia; G43.909 Migraine, unspecified, not intractable, without status migrainosus; I48.91 Unspecified atrial fibrillation; G70.00 Myasthenia gravis without (acute) exacerbation; I08.1 Rheumatic disorders of both mitral and tricuspid valves; I48.4 Atypical atrial flutter; I87.2 Venous insufficiency (chronic) (peripheral); D50.9 Iron deficiency anemia, unspecified; E03.2 Hypothyroidism due to medicaments and other exogenous substances; E87.6 Hypokalemia; Z90.49 Acquired absence of other specified parts of digestive tract; Z90.710 Acquired absence of both cervix and uterus; Z85.42 Personal history of malignant neoplasm of other parts of uterus; Z85.820 Personal history of malignant melanoma of skin; Z85.43 Personal history of malignant neoplasm of ovary; Z85.850 Personal history of malignant neoplasm of thyroid; Z88.6 Allergy status to analgesic agent; Z88.1 Allergy status to other antibiotic agents; Z88.2 Allergy status to sulfonamides; Z88.8 Allergy status to other drugs, medicaments and biological substances; Z79.899 Other long term (current) drug therapy; Z79.890 Hormone replacement therapy; Z95.810 Presence of automatic (implantable) cardiac defibrillator
CPT/HCPCS: 36415; 80048; 80061; 85025; 92960; 93005; 93010; 93312; 94760; J0282; J2704; J3490; J7070; U0002

== ENCOUNTER 2021-05-07 11:00 | Outpatient (CLI) | payer OTHER ==
[2021-05-07 11:53] LABS: Hemoglobin 11.4 g/dL (12.0-15.5); Mean Corpuscular HGB CONC 30.6 g/dL (32.0-36.0); Mean Corpuscular Hemoglobin 28.5 pg (27.0-33.0); Mean Platelet Volume 10.3 fl (7.4-10.4); Platelet Count 379 10x3/uL (150-450); RBC Distribution Width 13.6 % (11.5-14.5); White Blood Cell (WBC) Count 8.9 10x3/uL (3.5-10.5)
[2021-05-07 12:15] LABS: PTT 27.3 sec (22.0-33.0); Prothrombin Time 11.5 sec (9.5-12.1)
[2021-05-07 12:17] LABS: Anion Gap 10 mmol/L (10-20); BUN (Urea Nitrogen) 13 mg/dL (9.8-20.1); Calc. Creatinine Clearance 0 mL/min (70-130); Calcium 9.1 mg/dL (7.8-10.44); Carbon Dioxide 29 mmol/L (23-31); Chloride 107 mmol/L (98-107); Glucose 107 mg/dL (80-115); Potassium 4.1 mmol/L (3.5-5.1); Sodium 142 mmol/L (136-145)
[2021-05-07 19:14] LABS: SARS-CoV-2 PCR by NAA Not Detected (NotDetected)
== END 2021-05-07 11:01 | disposition home or self-care (01) ==
LOC: LABBT 11:00
PROVIDERS: ATTEND Internal Medicine Cardiovascular Disease
DX: Z01.812 Encounter for preprocedural laboratory examination (principal); Z51.81 Encounter for therapeutic drug level monitoring; I51.9 Heart disease, unspecified; I48.0 Paroxysmal atrial fibrillation; Z79.01 Long term (current) use of anticoagulants; Z95.0 Presence of cardiac pacemaker; Z20.822 Contact with and (suspected) exposure to COVID-19
CPT/HCPCS: 80048; 85027; 85610; 85730; U0003; U0005

== ENCOUNTER 2021-05-12 05:51 | Day surgery (SDC) | payer OTHER ==
[2021-04-29 14:12] VITALS: BMI 29.5
[2021-05-12] MEDS ORDERED: Protamine Sulfate 50 MG/5 ML VIAL ONE (06:43)
[2021-05-12] MEDS ORDERED: Heparin 25,000 units/D5W 500 ML ONE (06:43)
[2021-05-12] MEDS ORDERED: Heparin 10,000 UNITS/ 10 ML VIAL ONE (06:43)
[2021-05-12] MEDS ORDERED: Midazolam HCl 2 mg/2 ml Vial ONE (06:47)
[2021-05-12] MEDS ORDERED: Fentanyl 100 MCG/2 ML VIAL ONE ×2 (06:47→12:02)
[2021-05-12] MEDS ORDERED: Dexamethasone 20 MG/5 ML VIAL ONE (07:43)
[2021-05-12] MEDS ORDERED: PHENYLEPHRINE-NS 100 MCG/ML 10 ML SYRINGE ONE (07:43)
[2021-05-12] MEDS ORDERED: ePHEDrine 50 MG/ML VIAL ONE (07:43)
[2021-05-12] MEDS ORDERED: Lidocaine 1% PF 5 ML VIAL ONE (07:43)
[2021-05-12] MEDS ORDERED: PROPOFOL 200 MG/20 ML VIAL ONE (07:43)
[2021-05-12] MEDS ORDERED: Ondansetron PF 4 MG/2 ML Vial ONE (07:43)
[2021-05-12] MEDS ORDERED: Phenylephrine 10 MG/ML VIAL ONE (07:57)
[2021-05-12] MEDS ORDERED: Isoproterenol 0.2 MG/1 ML AMP ONE ×2 (08:13→10:39)
[2021-05-12] MEDS ORDERED: Ketorolac Tromethamine 30 MG/ML VIAL IVP PRN (11:06)
[2021-05-12] MEDS ORDERED: Sucralfate 1 GM TAB PO SCH (11:30)
[2021-05-12] MEDS ORDERED: Ketorolac Tromethamine 30 MG/ML VIAL ONE (11:35)
[2021-05-12] MEDS ORDERED: tiZANidine HCl 4 MG TAB ONE (13:52)
[2021-05-12] MEDS ORDERED: Gabapentin 300 MG CAP ONE (13:52)
== END 2021-05-12 15:25 | disposition home or self-care (01) ==
LOC: CCL 05:51
PROVIDERS: ATTEND Internal Medicine Cardiovascular Disease
PROC: 02583ZZ Destruction of Conduction Mechanism, Percutaneous Approach (ICD-10-PCS; principal; 2021-05-12)
PROC: 02K83ZZ Map Conduction Mechanism, Percutaneous Approach (ICD-10-PCS; principal; 2021-05-12)
PROC: 4A023FZ Measurement of Cardiac Rhythm, Percutaneous Approach (ICD-10-PCS; principal; 2021-05-12)
PROC: B244ZZZ Ultrasonography of Right Heart (ICD-10-PCS; principal; 2021-05-12)
PROC: 4A0234Z Measurement of Cardiac Electrical Activity, Percutaneous Approach (ICD-10-PCS; principal; 2021-05-12)
DX: I48.0 Paroxysmal atrial fibrillation (principal); I48.92 Unspecified atrial flutter; F17.210 Nicotine dependence, cigarettes, uncomplicated; M19.90 Unspecified osteoarthritis, unspecified site; E78.5 Hyperlipidemia, unspecified; E03.9 Hypothyroidism, unspecified; I49.5 Sick sinus syndrome; G70.00 Myasthenia gravis without (acute) exacerbation; Z79.01 Long term (current) use of anticoagulants; Z79.82 Long term (current) use of aspirin; Z79.899 Other long term (current) drug therapy; Z88.1 Allergy status to other antibiotic agents; Z88.2 Allergy status to sulfonamides; Z88.5 Allergy status to narcotic agent; Z88.6 Allergy status to analgesic agent; Z91.040 Latex allergy status; Z91.048 Other nonmedicinal substance allergy status; Z95.0 Presence of cardiac pacemaker; Z98.890 Other specified postprocedural states
CPT/HCPCS: 85347; 93005; 93010; 93613; 93622; 93623; 93656; 93657; 93662; C1732; C1759; C1776; C1884; J1100; J1644; J1885; J2250; J2370; J2405; J2704; J2720; J3010; J3490

== ENCOUNTER 2021-08-10 18:52 | Inpatient (IN) | payer OTHER ==
[2021-08-10 19:36] LABS: #Eosinphils 0.1 thou/uL (0.0-0.7); #Lymphocytes 2.2 thou/uL (1.20-3.40); #Monocytes 0.6 thou/uL (0.11-0.59); #Neutrophils 6.9 thou/uL (1.40-6.50); %Basophils 0.2 % (0.0-1.0); %Eosinophils 0.8 % (0.0-10.0); %Lymphocytes 22.1 % (21.0-51.0); %Monocytes 6.5 % (0.0-10.0); %Neutrophils 70.5 % (42.0-75.0); Hemoglobin 12.6 g/dL (12.0-16.0); Mean Corpuscular HGB CONC 31.9 g/dL (32.0-36.0); Mean Corpuscular Hemoglobin 29.3 pg (27.0-31.0); Mean Corpuscular Volume 91.8 fL (78.0-98.0); Mean Platelet Volume 8.1 fL (7.4-10.4); Platelet Count 329 thou/uL (130-400); RBC Distribution Width 17.8 % (11.5-14.5); Red Blood Cell (RBC) Count 4.32 mill/uL (4.20-5.40); White Blood Cell (WBC) Count 9.7 thou/uL (4.8-10.8)
[2021-08-10 19:57] LABS: ALT (SGPT) 80 U/L (8-55); AST (SGOT) 69 U/L (5-34); Albumin 4.1 g/dL (3.4-4.8); Alkaline Phosphatase 129 U/L (40-110); Anion Gap 15 mmol/L (10-20); BUN (Urea Nitrogen) 17 mg/dL (9.8-20.1); Bilirubin, Total 0.2 mg/dL (0.2-1.2); Calc. Creatinine Clearance 0 mL/min (70-130); Carbon Dioxide 23 mmol/L (23-31); Chloride 107 mmol/L (98-107); Globulin 2.9 g/dL (2.4-3.5); Glucose 118 mg/dL (80-115); Potassium 3.8 mmol/L (3.5-5.1); Sodium 141 mmol/L (136-145)
[2021-08-10] MEDS ORDERED: Diltiazem HCl 125 MG, Admixture Fee 1 EACH in Sodium Chloride 0.9% 100 ML IVPB SCH (20:15)
[2021-08-10] MEDS ORDERED: Ondansetron PF 4 MG/2 ML Vial IVP PRN (21:05)
[2021-08-10 22:00] LABS: Magnesium 2.3 mg/dL (1.6-2.6)
[2021-08-10 23:04] VITALS: BMI 29.7
[2021-08-10 23:48] LABS: Troponin I 0.012 ng/mL (< 0.028)
[2021-08-11] MEDS ORDERED: Dicyclomine 20 MG TAB PO PRN (07:12)
[2021-08-11] MEDS ORDERED: predniSONE 20 MG TAB PO SCH ×2 (08:00→09:30)
[2021-08-11] MEDS: Meclizine HCl 25 MG TAB PO SCH ×3 (08:38→20:53)
[2021-08-11] MEDS: Gabapentin 300 MG CAP PO SCH ×4 (08:38→20:53)
[2021-08-11] MEDS: Loratadine 10 MG TAB PO SCH (08:38)
[2021-08-11] MEDS: Calcium Carbonate 500 MG TAB PO SCH (08:38)
[2021-08-11] MEDS: busPIRone HCl 5 MG TAB PO SCH ×3 (08:38→20:53)
[2021-08-11] MEDS: Lansoprazole 3 MG/ML ORAL SUSPENSION PO SCH (08:39)
[2021-08-11] MEDS: Topiramate 100 MG TAB PO SCH (08:39)
[2021-08-11] MEDS: Multivit, Therapeutic 1 TAB PO SCH (08:39)
[2021-08-11] MEDS ORDERED: Enoxaparin Sodium 30 MG/0.3 ML SYRINGE SC SCH ×2 (09:00→09:15)
[2021-08-11] MEDS ORDERED: Ethacrynic Acid [Edecrin] 50 MG PO SCH (09:00)
[2021-08-11] MEDS ORDERED: Metoprolol Tartrate 25 MG TAB PO SCH (09:00)
[2021-08-11] MEDS ORDERED: Aspirin 325 mg Enteric Coated Tablet PO SCH ×2 (09:00→09:30)
[2021-08-11 11:27] LABS: SARS-CoV-2 PCR by NAA Not Detected (NotDetected)
[2021-08-11] MEDS ORDERED: Flecainide 50 MG TAB PO PRN (16:16)
[2021-08-11] MEDS ORDERED: Rivaroxaban 10 MG TAB PO SCH (18:00)
[2021-08-11] MEDS: Metoprolol Tartrate 25 MG TAB PO SCH (20:53)
[2021-08-11] MEDS ORDERED: Topiramate 100 MG TAB PO SCH (21:00)
[2021-08-11] MEDS ORDERED: Atorvastatin Calcium 10 MG TAB PO SCH ×2 (21:00)
[2021-08-12] MEDS ORDERED: Levothyroxine 175 MCG TAB PO SCH (06:00)
[2021-08-12 07:36] VITALS: TEMP 98.4
[2021-08-12] MEDS ORDERED: predniSONE 20 MG TAB PO SCH (08:00)
[2021-08-12] MEDS: Multivit, Therapeutic 1 TAB PO SCH (08:57)
[2021-08-12] MEDS: Gabapentin 300 MG CAP PO SCH (08:57)
[2021-08-12] MEDS: Meclizine HCl 25 MG TAB PO SCH (08:57)
[2021-08-12] MEDS: Loratadine 10 MG TAB PO SCH (08:58)
[2021-08-12] MEDS: Calcium Carbonate 500 MG TAB PO SCH (08:58)
[2021-08-12] MEDS: Metoprolol Tartrate 25 MG TAB PO SCH (08:58)
[2021-08-12] MEDS ORDERED: Aspirin 325 mg Enteric Coated Tablet PO SCH (09:00)
[2021-08-12] MEDS ORDERED: Aspirin 81 mg Enteric Coated Tablet PO SCH (09:00)
[2021-08-12] MEDS ORDERED: Enoxaparin Sodium 30 MG/0.3 ML SYRINGE SC SCH (09:00)
[2021-08-12] MEDS: Topiramate 100 MG TAB PO SCH (09:01)
[2021-08-12] MEDS: Lansoprazole 3 MG/ML ORAL SUSPENSION PO SCH (09:50)
[2021-08-12] MEDS: busPIRone HCl 5 MG TAB PO SCH (09:50)
[2021-08-12 09:59] VITALS: BP 112/63
[2021-08-31] MEDS ORDERED: Cyanocobalamin 1000 MCG/ML VIAL IM SCH (09:00)
== END 2021-08-12 11:28 | disposition home or self-care (01) | DRG 310 ==
LOC: ERS 18:52 → 2NO 21:08 → ERS 22:34
PROVIDERS: ADMIT Internal Medicine; ATTEND Internal Medicine
PROC: 4B02XSZ Measurement of Cardiac Pacemaker, External Approach (ICD-10-PCS; principal; 2021-08-11)
DX: I48.0 Paroxysmal atrial fibrillation (principal); Z20.822 Contact with and (suspected) exposure to COVID-19; I48.92 Unspecified atrial flutter; G70.00 Myasthenia gravis without (acute) exacerbation; G43.909 Migraine, unspecified, not intractable, without status migrainosus; E89.0 Postprocedural hypothyroidism; F17.210 Nicotine dependence, cigarettes, uncomplicated; R74.8 Abnormal levels of other serum enzymes; I49.5 Sick sinus syndrome; E78.00 Pure hypercholesterolemia, unspecified; D53.9 Nutritional anemia, unspecified; G89.29 Other chronic pain; Z88.5 Allergy status to narcotic agent; Z88.0 Allergy status to penicillin; Z88.2 Allergy status to sulfonamides; Z88.7 Allergy status to serum and vaccine; Z88.8 Allergy status to other drugs, medicaments and biological substances; Z88.6 Allergy status to analgesic agent; Z88.1 Allergy status to other antibiotic agents; Z91.012 Allergy to eggs; Z91.040 Latex allergy status; Z91.09 Other allergy status, other than to drugs and biological substances; Z85.850 Personal history of malignant neoplasm of thyroid; Z85.820 Personal history of malignant melanoma of skin; Z85.43 Personal history of malignant neoplasm of ovary; Z79.899 Other long term (current) drug therapy; Z79.890 Hormone replacement therapy; Z79.82 Long term (current) use of aspirin; Z79.02 Long term (current) use of antithrombotics/antiplatelets; Z90.49 Acquired absence of other specified parts of digestive tract; Z98.84 Bariatric surgery status; Z98.890 Other specified postprocedural states; Z95.0 Presence of cardiac pacemaker; Z82.49 Family history of ischemic heart disease and other diseases of the circulatory system
CPT/HCPCS: 36415; 71045; 80053; 83735; 83880; 84443; 84484; 85025; 93005; 96365; 96376; J1650; J3490; J7512; U0003; U0005